=== PATIENT | female | born 1950 | race Caucasian/White ===

== ENCOUNTER → 2016-06-08 | Outpatient (CLI) | payer OTHER ==
--- NOTE | 2016-06-08 22:22 | DX ---
DEXA Bone Mineral Densitometry Clinical Indications: Family history of osteoporosis. Technique: Bone Mineral Densitometry (BMD) by Dual Energy X-Ray Absorptiometry (DEXA) was performed utilizing the Watch Over Me scanner. The lumbar spine was evaluated in the AP projection. Both hip s and the nondominant forearm were evaluated in the AP projection. Images were reviewed for spinal f racture. Comparison: 2004. AP Lumbar Spine: Vertebral bodies of L1, L2, L3, and L4 were assessed. BMD: 1.045 gm/cm2. T-score: -1.2 SD. Z-score: 0 SD. This value is a change of -9.7% from 2004. AP Left Hip: Neck BMD: 0.936 gm/cm2. T-score: -0.7 SD. Z-score: 0.5 SD. This is a change of -13.2% compared to 2004. AP Right Hip: Neck BMD: 0.981 gm/cm2. T-score: -0.4 SD. Z-score: 0.8 SD. AP Left Forearm, 06/02: BMD: 0.668 gm/cm2. T-score: -2.4 SD. Z-score: -1.0 SD. Vertebral Fracture Assessment: No significant fracture deformity. Conclusion: Considering the lowest measured site, the patient is osteopenic. The ten year risk for any major osteoporotic fracture is 14.5% and for a hip fracture is 0.5%. Any bone loss in this patient is probably related to aging or estrogen deficiency. To prevent osteop orosis and to promote bone density, consider the following recommendations: 1. Pursue a regular regimen of weightbearing and muscle strengthening exercises in order to reduce t he risk of falls and fracture (as tolerated by the patient's general medical condition). 2. Ensure that total daily calcium intake is at least 1500 mg (diet plus supplements). 3. Check serum hydroxy vitamin D3 (normal >30ng/ml). 4. Ensure daily intake of vitamin D is 800 international units. 5. Consider follow-up DEXA scan in two years to assess the rate of bone loss in this patient. 6. Consider excluding common secondary causes of bone loss. Useful laboratory tests include CBC, TS H, calcium, phosphorous, albumin, creatinine, alkaline phosphatase, PTH, serum electrophoresis (SPEP or UPEP), antitissue transglutaminase antibody levels (celiac disease), hydroxy vitamin D3, and 24-ho ur urine calcium.
== END ==
LOC: BRMIMAGING 10:14
PROVIDERS: ATTEND Family Medicine
DX: Z13.820 Encounter for screening for osteoporosis (principal); M85.80 Other specified disorders of bone density and structure, unspecified site; Z82.62 Family history of osteoporosis